=== PATIENT | male | born 1955 | race Caucasian/White ===

== ENCOUNTER → 2018-02-05 | Outpatient (CLI) | payer MEDICARE, OTHER ==
--- NOTE | 2018-02-06 10:43 | US ---
EXAMINATION TYPE: US carotid duplex BILAT DATE OF EXAM: 02/05/2018 COMPARISON: NONE CLINICAL HISTORY: I65.29 carotid stenosis; prior smoker, coronary artery stent EXAM MEASUREMENTS: RIGHT: Peak Systolic Velocity (PSV) cm/sec ----- Right CCA: 66.8 ----- Right ICA: 46.7 ----- Right ECA: 100.4 ICA/CCA ratio: 0.7 RIGHT: End Diastole cm/sec ----- Right CCA: 15.4 ----- Right ICA: 15.4 ----- Right ECA: 26.7 LEFT: Peak Systolic Velocity (PSV) cm/sec ----- Left CCA: 57.2 ----- Left ICA: 73.8 ----- Left ECA: 104.3 ICA/CCA ratio: 1.3 LEFT: End Diastole cm/sec ----- Left CCA: 14.5 ----- Left ICA: 21.5 ----- Left ECA: 21.5 VERTEBRALS (direction of flow): Right Vertebral: Antegrade Left Vertebral: Antegrade Rhythm: Normal Mild intimal wall changes are noted bilaterally, but PSV is wnl. IMPRESSION: Mild wall thickening without significant flow-limiting stenosis. Criteria for Assigning % of Stenosis / Diameter reduction (Estimation based on the indirect measurements of the internal carotid artery velocities (ICA PSV). 1. Normal (no stenosis)=ICA PSV < 125 cm/s: ratio < 2.0: ICA EDV<40 cm/s. 2. Less than 50% stenosis=ICA PSV < 125 cm/s: ratio < 2.0: ICA EDV<40 cm/s. 3. 50 to 69% stenosis=ICA PSV of 125 to 230 cm/s: ration 2.0 ? 4.0: ICA EDV 40-100 cm/s. 4. Greater than 70% stenosis to near occlusion= ICA PSV > 230 cm/s: ratio > 4.0: ICA EDV > 100 cm/s. 5. Near occlusion= ICA PSV velocities may be low or undetectable: variable ratio and ICA EDV. 6. Total occlusion=unable to detect flow.
== END | disposition home or self-care (01) ==
LOC: RADUSWWP 15:45
PROVIDERS: ATTEND Family Medicine
DX: R93.1 Abnormal findings on diagnostic imaging of heart and coronary circulation (principal)
CPT/HCPCS: 93880

== ENCOUNTER 2020-12-17 07:08 | Day surgery (SDC) | payer MEDICARE ==
[2020-12-14 15:10] VITALS: BMI 34.9
[~2020-12-17 07:08] MED LIST: LACTATED RINGERS 1,000 ML IV SCH; LIDOCAINE 1% (10MG/ML) FOR IV START INTRADERMA PRN
[2020-12-17 07:24] VITALS: TEMP 98.8
[2020-12-17] MEDS ORDERED: MIDAZOLAM 2 MG/2 ML VIAL ONE (08:23)
[2020-12-17] MEDS ORDERED: fentaNYL (PF) 50 MCG/ML 2 ML AMP ONE (08:23)
[2020-12-17] MEDS ORDERED: PROPOFOL 10 MG/ML 20 ML VIAL IV ONE (08:23)
--- NOTE | 2020-12-17 08:27 | P.GSHP ---
History of Present Illness H&P Date: 12/17/20 Chief Complaint: Screening colonoscopy This 65-year-old male who presents today for screening colonoscopy. Denies a significant GI bleed. Past Medical History Past Medical History: Diabetes Mellitus, GERD/Reflux, Hyperlipidemia, Hyper tension, Myocardial Infarction ([place]) Additional Past Medical History / Comment(s): ?sleep apnea-has never had sleep study Last Myocardial Infarction Date:: 01/07/14 History of Any Multi-Drug Resistant Organisms: None Reported Past Surgical History: Heart Catheterization With Stent, Orthopedic Surgery Additional Past Surgical History / Comment(s): Bilat knee arthroscopies Past Anesthesia/Blood Transfusion Reactions: No Reported Reaction Date of Last Stent Placement:: 01/07/14 Smoking Status: Former smoker - Past Family History Brother(s) Family Medical History: Cancer Additional Family Medical History / Comment(s): colon cancer Medications and Allergies Home Medications Medication Instructions Recorded Confirmed Type Aspirin 81 mg PO DAILY 07/13/15 12/14/20 History Atorvastatin [Lipitor] 80 mg PO DAILY 07/13/15 12/14/20 History Clopidogrel [Plavix] 75 mg PO DAILY 07/13/15 12/14/20 History Folic Acid 0.4 mg PO DAILY 07/13/15 12/14/20 History Metoprolol Tartrate [Lopressor] 25 mg PO BID 07/13/15 12/14/20 History Nitroglycerin Sl Tabs [Nitrostat] 0.4 mg SL DIRECTED PRN 07/13/15 12/14/20 History Venlafaxine HCl [Effexor] 75 mg PO DAILY 07/13/15 12/14/20 History lisinopriL [Zestril] 10 mg PO BID 07/13/15 12/14/20 History Levothyroxine Sodium [Synthroid] 25 mcg PO DAILY 12/14/20 12/14/20 History Loratadine [Claritin] 10 mg PO DAILY 12/14/20 12/14/20 History Omeprazole 40 mg PO DAILY PRN 12/14/20 12/14/20 History metFORMIN HCL [Glucophage] 500 mg PO BID 12/14/20 12/14/20 History Allergies Allergy/AdvReac Type Severity Reaction Status Date / Time No Known Allergies Allergy Verified 12/14/20 15:00 Surgical - Exam Vital Signs Temp Pulse Resp BP Pulse Ox 98.8 F 69 16 146/77 97 12/17/20 07:22 12/17/20 07:22 12/17/20 07:22 12/17/20 07:22 12/17/20 07:22 - General well developed, well nourished, no distress - Eyes PERRL - ENT normal pinna - Neck no masses - Respiratory normal expansion - Cardiovascular Rhythm: regular - Abdomen Abdomen: soft, non tender Assessment and Plan Assessment: We'll perform screening colonoscopy.
--- NOTE | 2020-12-17 08:39 | P.OP ---
Date of Procedure: 12/17/20 Preoperative Diagnosis: Screening colonoscopy Postoperative Diagnosis: Normal colon Procedure(s) Performed: Colonoscopy Anesthesia: MAC Surgeon: Celestino Alvarenga Pathology: none sent Condition: stable Disposition: PACU Description of Procedure: PROCEDURE: The patient was placed on the endoscopy table in the lateral position. Digital rectal examination was performed which revealed no abnormalities. The prostate was symmetrical without nodules. Flexible colonoscope was then placed in the patient's anus and passed throughout the entire colon. The ileocecal valve was visualized. The cecum, ascending, transverse, descending and sigmoid colon were normal. The rectum was normal as well. There were no masses, polyps or diverticula noted in the entire colon. SUMMARY OF FINDINGS: Normal colonoscopy.
[2020-12-17 08:47] LABS: Glucose,Whole Blood 92 mg/dL (75-99)
[2020-12-17 09:00] VITALS: BP 118/72; PULSE 62; RESP 14
== END 2020-12-17 09:16 | disposition home or self-care (01) ==
LOC: ORWHC2ENDO 07:08
PROVIDERS: ATTEND Surgery
DX: Z12.11 Encounter for screening for malignant neoplasm of colon (principal); Z80.0 Family history of malignant neoplasm of digestive organs; I10 Essential (primary) hypertension; E78.5 Hyperlipidemia, unspecified; E11.9 Type 2 diabetes mellitus without complications; I25.2 Old myocardial infarction; K21.9 Gastro-esophageal reflux disease without esophagitis; Z95.5 Presence of coronary angioplasty implant and graft; Z87.891 Personal history of nicotine dependence; Z98.890 Other specified postprocedural states; Z79.02 Long term (current) use of antithrombotics/antiplatelets; Z79.82 Long term (current) use of aspirin; Z79.890 Hormone replacement therapy; Z79.84 Long term (current) use of oral hypoglycemic drugs; Z79.899 Other long term (current) drug therapy; Z82.49 Family history of ischemic heart disease and other diseases of the circulatory system; Z82.61 Family history of arthritis
CPT/HCPCS: G0105; J2250; J3010; J2704

== ENCOUNTER 2022-07-04 20:09 | Inpatient (IN) | payer MEDICARE ==
[~2022-07-04 20:09] MED LIST changes: +EPINEPHrine 10 ML SYRINGE (0.1 MG/ML) ONE; -LACTATED RINGERS 1,000 ML IV SCH; -LIDOCAINE 1% (10MG/ML) FOR IV START INTRADERMA PRN; +MAGNESIUM SULFATE SYG 4.06 MEQ/ML SYRINGE ONE; +NOREPINEPHRINE 1 MG/ML 4 ML VIAL IV ONE; +SODIUM BICARB 8.4% 50 ML SYR (1 MEQ/ML) ONE; +SODIUM CHLORIDE 0.9% 250 ML BAG ONE
[2022-07-04 20:18] LABS: Glucose,Whole Blood 83 mg/dL (70-110)
[2022-07-04] MEDS ORDERED: NOREPINEPHRINE 4 MG in SODIUM CHLORIDE 0.9% 250 ML IV ONE (20:45)
[2022-07-04 21:07] LABS: HGB 12.1 gm/dL (13.0-17.5); Hypochromasia Marked; MCH 33.3 pg (25.0-35.0); MCHC 28.1 g/dL (31.0-37.0); MCV 118.3 fL (80.0-100.0); Macrocytosis Marked; Mean Platelet Volume 13.1; RBC 3.63 m/uL (4.30-5.90); RDW 14.7 % (11.5-15.5); WBC 4.1 k/uL (3.8-10.6)
[2022-07-04 21:08] LABS: Platelet Count 76 k/uL (150-450)
[2022-07-04] MEDS ORDERED: SODIUM CHLORIDE 0.9% 1,000 ML IV STA (21:12)
[2022-07-04] MEDS ORDERED: SODIUM CHLORIDE 0.9% 1,000 ML IV ONE (21:13)
[2022-07-04] MEDS ORDERED: cefTRIAXone IN SWFI 1,000 MG/10 ML SYRINGE IVP STA (21:13)
[2022-07-04 21:27] LABS: Band Neutrophils % 2 %; Lymphocytes # (M) 2.95 k/uL (1.0-4.8); Monocytes # (M) 0.08 k/uL (0-1.0); Neutrophils % (M) 24 %; Nucleated Red Blood Cells 0 /100 WBC (0-0); Total Cells Counted 100
[2022-07-04 21:28] LABS: Polychromasia Present
[2022-07-04] MEDS ORDERED: PANTOPRAZOLE 40 MG/10 ML VIAL IVP STA (21:43)
[2022-07-04 21:50] LABS: Albumin 3.2 g/dL (3.5-5.0); Calcium 9.2 mg/dL (8.4-10.2); Total Bilirubin 0.4 mg/dL (0.2-1.3); Total Protein 6.1 g/dL (6.3-8.2)
[2022-07-04 21:51] LABS: Potassium 4.8 mmol/L (3.5-5.1)
--- NOTE | 2022-07-04 21:53 | ED ---
General Adult HPI - General Chief complaint: Cardiac Arrest/CPR Stated complaint: Cardiac Arrest Source: EMS, RN notes reviewed, old records reviewed Mode of arrival: EMS Limitations: altered mental status, physical limitation - History of Present Illness Initial comments: 66-year-old male with known coronary artery disease presents status post cardiac arrest. Patient had been found in his garage by his . He collapsed and had agonal respirations. CPR was initiated. This was shortly after 7 PM. Paramedics had initially asystole followed by a brief return of spontaneous circulation followed by asystole. He received resuscitation according to ACLS protocol. He was receiving respirations by a Yakov airway. Had a left tibial IO. There was no preceding symptoms according to the family. Resuscitative efforts were continued upon arrival. - Related Data Home Medications Medication Instructions Recorded Confirmed Aspirin 81 mg PO DAILY 07/13/15 12/14/20 Atorvastatin [Lipitor] 80 mg PO DAILY 07/13/15 12/14/20 Clopidogrel [Plavix] 75 mg PO DAILY 07/13/15 12/14/20 Folic Acid 0.4 mg PO DAILY 07/13/15 12/14/20 Metoprolol Tartrate [Lopressor] 25 mg PO BID 07/13/15 12/14/20 Nitroglycerin Sl Tabs [Nitrostat] 0.4 mg SL DIRECTED PRN 07/13/15 12/14/20 Venlafaxine HCl [Effexor] 75 mg PO DAILY 07/13/15 12/14/20 lisinopriL [Zestril] 10 mg PO BID 07/13/15 12/14/20 Levothyroxine Sodium [Synthroid] 25 mcg PO DAILY 12/14/20 12/14/20 Loratadine [Claritin] 10 mg PO DAILY 12/14/20 12/14/20 Omeprazole 40 mg PO DAILY PRN 12/14/20 12/14/20 metFORMIN HCL [Glucophage] 500 mg PO BID 12/14/20 12/14/20 Allergies Allergy/AdvReac Type Severity Reaction Status Date / Time No Known Allergies Allergy Verified 12/14/20 15:00 Review of Systems ROS Statement: Those systems with pertinent positive or pertinent negative responses have been documented in the HPI. ROS Other: All systems not noted in ROS Statement are negative. Past Medical History Past Medical History: Diabetes Mellitus, GERD/Reflux, Hyperlipidemia, Hypertension, Myocardial Infarction ([place]) Additional Past Medical History / Comment(s): ?sleep apnea-has never had sleep study Last Myocardial Infarction Date:: 01/07/14 History of Any Multi-Drug Resistant Organisms: None Reported Past Surgical History: Heart Catheterization With Stent, Orthopedic Surgery Additional Past Surgical History / Comment(s): Bilat knee arthroscopies Past Anesthesia/Blood Transfusion Reactions: No Reported Reaction Date of Last Stent Placement:: 01/07/14 Past Psychological History: Depression Smoking Status: Former smoker - Past Family History Brother(s) Family Medical History: Cancer Additional Family Medical History / Comment(s): colon cancer General Exam General appearance: other (No spontaneous movement, no signs of life initially) Head exam: Present: other (Abrasion to the right methodist) Eye exam: Present: other (Pupils fixed and dilated) Respiratory exam: Present: other (Breath sounds with BVM) Cardiovascular Exam: Present: other (No spontaneous heart sounds) GI/Abdominal exam: Present: distended Extremities exam: Present: other (Left tibial IO) Neurological exam: Present: other (No gag, no corneal, no pupillary reflex) Skin exam: Present: cyanosis Course Vital Signs 07/04/22 07/04/22 07/04/22 20:13 21:14 21:23 Pulse Rate 0 L Respiratory 0 L Rate Blood Pressure O2 Sat by Pulse 71 L Oximetry Fraction of 100 100 Inspired Oxygen (FIO2) 07/04/22 07/04/22 23:07 23:11 Pulse Rate 112 H Respiratory 24 Rate Blood Pressure 66/49 O2 Sat by Pulse Oximetry Fraction of 100 Inspired Oxygen (FIO2) - Reevaluation(s) Reevaluation #1: 07/05/22 00:05 Ultimately patient's does decide on DO NOT RESUSCITATE and the patient will be managed medically without CPR or further measures. Reevaluation #2: 07/05/22 00:08 Time of 0008 EKG Findings - EKG Comments: EKG Findings:: Post cardiac arrest EKG, sinus rhythm with right bundle branch block rate of 82 UT interval 104, QRS duration 158, QTC 447 Procedures - Central Line Placement Right Femoral Consent Obtained: emergent situation Patient Placed on Monitor/Pulse Ox: Yes Prep: gloves Central Line Prep: Chlorhexidine scrub Ultrasound Used for Placement: No Central Line Lumen Inserted: triple Bloods Obtained for Lab: Yes Central Line Position: good blood return, sutured in place with nylon Dressing Applied: Tegaderm Patient Tolerated Procedure: well - Intubation Laryngoscope: Heather Size: 3 ET Tube Size: 7.5 ET Tube Uncuffed: No Tube Secured Depth (cm): 24 Tube Secured Location: lips Tube Placement Confirmation: visualized tube passing through cords, equal breath sounds bilaterally, no breath sounds over epigastrium, confirmation by capnometry Patient Tolerated Procedure: well Intubation Complications: none Medical Decision Making - Medical Decision Making 66-year-old male presenting in cardiac arrest, out of Hospital cardiac arrest with prolonged down time. Resuscitative efforts were continued in the emergency department. The patient was intubated with a 7.5 ET tube. He had a left tibial IO. Resuscitative efforts were performed in the emergency department. He had multiple episodes of return of spontaneous circulation with intermittent episodes PEA. He had a brief episode of ventricular fibrillation which was successfully defibrillated. Remained stable in our for laboratory studies to be obtained. Significantly acidotic likely from prolonged down time. He has an elevated troponin. He has transaminitis and elevated INR. He is not on any anticoagulation according to the medical record. Patient has chest x-ray which is showing satisfactory ET tube placement. I did perform a CT both for cardiac arrest and in the setting of a fall. There is loss of uribe-white differentiation without intracranial hemorrhage or mass effect. Patient continued on bicarb drip as well as norepinephrine. I discussed case with the admitting physician Dr. Arreola, the radio communications mechanician Dr. Avila cardiology Dr. Love. The patient's prognosis is poor. At this time the family does wish for the patient to remain a full code. - Lab Data Result diagrams: 07/04/22 20:43 07/04/22 20:43 Lab Results 07/04/22 07/04/22 07/04/22 Range/Units 20:17 20:43 20:43 WBC 4.1 (3.8-10.6) k/uL RBC 3.63 L (4.30-5.90) m/uL Hgb 12.1 L (13.0-17.5) gm/dL Hct 43.0 (39.0-53.0) % MCV 118.3 H (80.0-100.0) fL MCH 33.3 (25.0-35.0) pg MCHC 28.1 L (31.0-37.0) g/dL RDW 14.7 (11.5-15.5) % Plt Count 76 L (150-450) k/uL MPV 13.1 Neutrophils % (Manual) 24 % Band Neuts % (Manual) 2 % Lymphocytes % (Manual) 72 % Monocytes % (Manual) 2 % Neutrophils # (Manual) 1.00 L (1.3-7.7) k/uL Lymphocytes # (Manual) 2.95 (1.0-4.8) k/uL Monocytes # (Manual) 0.08 (0-1.0) k/uL Nucleated RBCs 0 (0-0) /100 WBC Manual Slide Review Performed Polychromasia Present Hypochromasia Marked Macrocytosis Marked A PT (9.0-12.0) sec INR (<1.2) APTT (22.0-30.0) sec Sample Site ABG pH (7.35-7.45) ABG pCO2 (35-45) mmHg ABG pO2 (83-108) mmHg ABG HCO3 (21-25) mmol/L ABG Total CO2 (19-24) mmol/L ABG O2 Saturation (94-97) % ABG Base Excess mmol/L Yon Test FiO2 % Sodium 138 (137-145) mmol/L Potassium 4.8 (3.5-5.1) mmol/L Chloride 99 (98-107) mmol/L Carbon Dioxide 12 L (22-30) mmol/L Anion Gap 27 mmol/L BUN 8 L (9-20) mg/dL Creatinine 1.32 H (0.66-1.25) mg/dL Est GFR (CKD-EPI)AfAm 65 (>60 ml/min/1.73 sqM) Est GFR (CKD-EPI)NonAf 57 (>60 ml/min/1.73 sqM) Glucose 341 H (74-99) mg/dL POC Glucose (mg/dL) 83 (70-110) mg/dL POC Glu Security Control [employer] Operator ID Alva Benton Calcium 9.2 (8.4-10.2) mg/dL Total Bilirubin 0.4 (0.2-1.3) mg/dL AST 466 H (17-59) U/L ALT 245 H (4-49) U/L Alkaline Phosphatase 96 (38-126) U/L Troponin I (0.000-0.034) ng/mL Total Protein 6.1 L (6.3-8.2) g/dL Albumin 3.2 L (3.5-5.0) g/dL Serum Alcohol mg/dL 07/04/22 07/04/22 07/04/22 Range/Units 21:12 21:12 21:55 WBC (3.8-10.6) k/uL RBC (4.30-5.90) m/uL Hgb (13.0-17.5) gm/dL Hct (39.0-53.0) % MCV (80.0-100.0) fL MCH (25.0-35.0) pg MCHC (31.0-37.0) g/dL RDW (11.5-15.5) % Plt Count (150-450) k/uL MPV Neutrophils % (Manual) % Band Neuts % (Manual) % Lymphocytes % (Manual) % Monocytes % (Manual) % Neutrophils # (Manual) (1.3-7.7) k/uL Lymphocytes # (Manual) (1.0-4.8) k/uL Monocytes # (Manual) (0-1.0) k/uL Nucleated RBCs (0-0) /100 WBC Manual Slide Review Polychromasia Hypochromasia Macrocytosis PT 27.1 H (9.0-12.0) sec INR 2.7 H (<1.2) APTT 143.5 H* (22.0-30.0) sec Sample Site ABG pH (7.35-7.45) ABG pCO2 (35-45) mmHg ABG pO2 (83-108) mmHg ABG HCO3 (21-25) mmol/L ABG Total CO2 (19-24) mmol/L ABG O2 Saturation (94-97) % ABG Base Excess mmol/L Yon Test FiO2 % Sodium (137-145) mmol/L Potassium (3.5-5.1) mmol/L Chloride (98-107) mmol/L Carbon Dioxide (22-30) mmol/L Anion Gap mmol/L BUN (9-20) mg/dL Creatinine (0.66-1.25) mg/dL Est GFR (CKD-EPI)AfAm (>60 ml/min/1.73 sqM) Est GFR (CKD-EPI)NonAf (>60 ml/min/1.73 sqM) Glucose (74-99) mg/dL POC Glucose (mg/dL) (70-110) mg/dL POC Glu Security Control Center Operator ID Calcium (8.4-10.2) mg/dL Total Bilirubin (0.2-1.3) mg/dL AST (17-59) U/L ALT (4-49) U/L Alkaline Phosphatase (38-126) U/L Troponin I 0.709 H* (0.000-0.034) ng/mL Total Protein (6.3-8.2) g/dL Albumin (3.5-5.0) g/dL Serum Alcohol <10 mg/dL 07/04/22 Range/Units 22:14 WBC (3.8-10.6) k/uL RBC (4.30-5.90) m/uL Hgb (13.0-17.5) gm/dL Hct (39.0-53.0) % MCV (80.0-100.0) fL MCH (25.0-35.0) pg MCHC (31.0-37.0) g/dL RDW (11.5-15.5) % Plt Count (150-450) k/uL MPV Neutrophils % (Manual) % Band Neuts % (Manual) % Lymphocytes % (Manual) % Monocytes % (Manual) % Neutrophils # (Manual) (1.3-7.7) k/uL Lymphocytes # (Manual) (1.0-4.8) k/uL Monocytes # (Manual) (0-1.0) k/uL Nucleated RBCs (0-0) /100 WBC Manual Slide Review Polychromasia Hypochromasia Macrocytosis PT (9.0-12.0) sec INR (<1.2) APTT (22.0-30.0) sec Sample Site LBRACH ABG pH 6.90 L* (7.35-7.45) ABG pCO2 71 H* (35-45) mmHg ABG pO2 121 H (83-108) mmHg ABG HCO3 14 L (21-25) mmol/L ABG Total CO2 16 L (19-24) mmol/L ABG O2 Saturation 94.8 (94-97) % ABG Base Excess -18.8 mmol/L Yon Test Yes FiO2 100 % Sodium (137-145) mmol/L Potassium (3.5-5.1) mmol/L Chloride (98-107) mmol/L Carbon Dioxide (22-30) mmol/L Anion Gap mmol/L BUN (9-20) mg/dL Creatinine (0.66-1.25) mg/dL Est GFR (CKD-EPI)AfAm (>60 ml/min/1.73 sqM) Est GFR (CKD-EPI)NonAf (>60 ml/min/1.73 sqM) Glucose (74-99) mg/dL POC Glucose (mg/dL) (70-110) mg/dL POC Glu Security Control Center Operator ID Calcium (8.4-10.2) mg/dL Total Bilirubin (0.2-1.3) mg/dL AST (17-59) U/L ALT (4-49) U/L Alkaline Phosphatase (38-126) U/L Troponin I (0.000-0.034) ng/mL Total Protein (6.3-8.2) g/dL Albumin (3.5-5.0) g/dL Serum Alcohol mg/dL Critical Care Time Critical Care Time: Yes Total Critical Care Time: 100 Disposition Clinical Impression: Cardiac arrest, Signs of return of spontaneous circulation Disposition: Condition: Poor Is patient prescribed a controlled substance at d/c from ED?: No Time of Disposition: 22:20 Decision to Admit Reason: Admit from EC Preliminary Cause of : Cardiopulmonary arrest
--- NOTE | 2022-07-04 21:58 | XR ---
EXAMINATION TYPE: XR chest 1V portable DATE OF EXAM: 07/04/2022 9:50 PM COMPARISON: Chest radiographs from 01/10/2014. TECHNIQUE: XR chest 1V portable Frontal view of the chest. CLINICAL INDICATION:Male, 66 years old with history of cardiac arrest; FINDINGS: Patient is rotated which limits evaluation. Lungs/Pleura: There is no evidence of pleural effusion, focal consolidation, or pneumothorax. Pulmonary vascularity: Unremarkable. Heart/mediastinum: Cardiomediastinal silhouette is enlarged. Musculoskeletal: No acute osseous pathology. Other findings: None Lines/Tubes: Endotracheal tube with distal tip 4.4 cm above the bre Nasogastric tube with its distal tip and side-port projecting under the diaphragm in the left upper q uadrant. IMPRESSION: Appropriate position of endotracheal and nasogastric tubes. Cardiomegaly.
[2022-07-04 22:04] LABS: INR 2.7 (<1.2); Prothrombin Time 27.1 sec (9.0-12.0)
[2022-07-04 22:18] LABS: Partial Thromboplastin Time 143.5 sec (22.0-30.0)
[2022-07-04 22:20] LABS: ABG Base Excess -18.8 mmol/L; ABG HCO3 14 mmol/L (21-25); ABG Oxygen Saturation 94.8 % (94-97); ABG PO2 121 mmHg (83-108); ABG TCO2 16 mmol/L (19-24); Allen Test Performed? Yes
--- NOTE | 2022-07-04 22:20 | CT ---
EXAMINATION TYPE: CT brain cspine wo con CT DLP: 1692.4 mGycm, Automated exposure control for dose reduction was used. DATE OF EXAM: 07/04/2022 10:04 PM COMPARISON: None.. CLINICAL INDICATION:Male, 66 years old with history of fall, cardiac arrest; fall, cardiac arrest TECHNIQUE: Brain: Multiple axial CT images of the brain were obtained without IV contrast. Cspine: Axial CT images from the skull base to the inferior aspect of T2 we obtained without intraven ous contrast. Coronal and sagittal reformatted images were also reviewed. FINDINGS: Brain: Extra-axial spaces: No abnormal extra-axial fluid collections. Ventricular system: Within normal limits Cerebral parenchyma: There is poor differentiation of the uribe and white matter this examination. Cerebellum: Unremarkable. Mass effect: No evidence of midline shift. Intracranial vasculature: Atherosclerotic calcifications of the intracranial vessels. Soft tissues: Right frontal soft tissue tissue edema. Calvarium/osseous structures: No depressed skull fracture. Paranasal sinuses and mastoid air cells: Mild scattered mucosal thickening and or secretions. Visualized orbits: Orbital contents are intact. Other: Partially visualized endotracheal and nasogastric tubes. Persistent cardiac arrest Cervical spine: Fracture: None. Osseous structures: Multilevel degenerative disc disease changes with endplate spurring and disc oste ophyte complex's. Vertebral alignment: Within normal limits. Spinal canal/Neural Foramina: No evidence of significant spinal canal narrowing. Facet joint uncovert ebral joint arthropathy scattered throughout the cervical spine with varying degrees of neural forami nal stenosis. Neck soft tissues: Prevertebral soft tissues are within normal limits. Other: The airway is patent. The lung apices are clear. IMPRESSION: 1. Diffuse hypoattenuation of the cerebral parenchyma with loss of the uribe-white matter differentia tion. There is diffuse effacement of the cortical sulci, basilar cisterns and ventricular system. Whi ch could be secondary to global hypoxic-ischemic injury. 2. No evidence of cervical spine fracture. 3. Mild multilevel degenerative disc disease. 4. Right frontal soft tissue tissue scalp edema.
[2022-07-04 22:23] LABS: ABG PCO2 71 mmHg (35-45)
[2022-07-04] MEDS ORDERED: DEXTROSE 5% IN WATER 1,000 ML with SODIUM BICARB (1 MEQ/ML) 150 ML IV SCH (22:30)
[2022-07-04] MEDS ORDERED: SODIUM BICARB 8.4% 50 ML SYR (1 MEQ/ML) IV STA (22:37)
[2022-07-04] MEDS ORDERED: HYDROmorphone 0.5 MG/0.5 ML SYRINGE IVP PRN (22:38)
[2022-07-04] MEDS ORDERED: NALOXONE 0.4 MG/ML 1 ML VIAL IV PRN (22:38)
[2022-07-04] MEDS ORDERED: ACETAMINOPHEN SUPPOSITORY 650 MG SUPP RECTAL PRN (22:38)
[2022-07-04] MEDS ORDERED: NOREPINEPHRINE 32 MG in SODIUM CHLORIDE 0.9% 218 ML IV SCH (22:45)
[2022-07-04 23:13] VITALS: RESP 24
--- NOTE | 2022-07-05 06:14 | P.HPIM ---
History of Present Illness H&P Date: 07/04/22 Chief Complaint: cardiac arrest 66-year-old male with diabetes mellitus, hypertension Patient was brought into the hospital by EMS as he was found in t and his home garage collapsed unresponsive EMS found him to be in asystole they did a prolonged code for about 30 minutes after which he achieved ROSC, and Route he had multiple episodes of asystole upon presentation to the ED patient was intubated and initiated on pressors however he had multiple short episodes of cardiac arrest, was successful return of spontaneous circulation after short cycle of CPR and patient medications. Imaging of the brain showed poor definition of white to uribe matter, patient blood pressure remained hypotensive with undetectable pulses despite IV pressors. Patient severely acidotic with both metabolic and respiratory acidosis. Further discussion with the family family agreed to make him DO NOT RESUSCITATE. patient was monitored in the emergency department for stabilization.Patient eventually Slowly went intobradycardia and . Past Medical History Past Medical History: Diabetes Mellitus, GERD/Reflux, Hyperlipidemia, Hyperten rhina, Myocardial Infarction ([place]) Additional Past Medical History / Comment(s): ?sleep apnea-has never had sleep study Last Myocardial Infarction Date:: 01/07/14 History of Any Multi-Drug Resistant Organisms: None Reported Past Surgical History: Heart Catheterization With Stent, Orthopedic Surgery Additional Past Surgical History / Comment(s): Bilat knee arthroscopies Past Anesthesia/Blood Transfusion Reactions: No Reported Reaction Date of Last Stent Placement:: 01/07/14 Past Psychological History: Depression Smoking Status: Former smoker - Past Family History Brother(s) Family Medical History: Cancer Additional Family Medical History / Comment(s): colon cancer Medications and Allergies Home Medications Medication Instructions Recorded Confirmed Type Aspirin 81 mg PO DAILY 07/13/15 12/14/20 History Atorvastatin [Lipitor] 80 mg PO DAILY 07/13/15 12/14/20 History Clopidogrel [Plavix] 75 mg PO DAILY 07/13/15 12/14/20 History Folic Acid 0.4 mg PO DAILY 07/13/15 12/14/20 History Metoprolol Tartrate [Lopressor] 25 mg PO BID 07/13/15 12/14/20 History Nitroglycerin Sl Tabs [Nitrostat] 0.4 mg SL DIRECTED PRN 07/13/15 12/14/20 History Venlafaxine HCl [Effexor] 75 mg PO DAILY 07/13/15 12/14/20 History lisinopriL [Zestril] 10 mg PO BID 07/13/15 12/14/20 History Levothyroxine Sodium [Synthroid] 25 mcg PO DAILY 12/14/20 12/14/20 History Loratadine [Claritin] 10 mg PO DAILY 12/14/20 12/14/20 History Omeprazole 40 mg PO DAILY PRN 12/14/20 12/14/20 History metFORMIN HCL [Glucophage] 500 mg PO BID 12/14/20 12/14/20 History Allergies Allergy/AdvReac Type Severity Reaction Status Date / Time No Known Allergies Allergy Verified 12/14/20 15:00 Physical Exam Vitals: Vital Signs Pulse Pulse Resp BP BP Pulse Ox FiO2 07/04/22 23:11 112 H 24 66/49 07/04/22 23:07 100 07/04/22 21:55 76 54/32 94 L 07/04/22 21:40 78 78/54 96 07/04/22 21:25 84 64/32 07/04/22 21:23 100 07/04/22 21:14 100 07/04/22 21:10 80 78/54 95 07/04/22 20:55 0 L 54/31 94 L 07/04/22 20:40 84 70/48 07/04/22 20:25 0 L 42/28 07/04/22 20:13 0 L 0 L 71 L 07/04/22 20:10 0 L 50/42 Intake and Output 07/04/22 07/04/22 07/05/22 14:59 22:59 06:59 Other: Weight 127.006 kg Results CBC & Chem 7: 07/04/22 20:43 07/04/22 20:43 Labs: Abnormal Lab Results - Last 24 Hours (Table) 07/04/22 07/04/22 07/04/22 Range/Units 20:43 20:43 21:12 RBC 3.63 L (4.30-5.90) m/uL Hgb 12.1 L (13.0-17.5) gm/dL MCV 118.3 H (80.0-100.0) fL MCHC 28.1 L (31.0-37.0) g/dL Plt Count 76 L (150-450) k/uL Neutrophils # (Manual) 1.00 L (1.3-7.7) k/uL Macrocytosis Marked A PT 27.1 H (9.0-12.0) sec INR 2.7 H (<1.2) APTT 143.5 H* (22.0-30.0) sec ABG pH (7.35-7.45) ABG pCO2 (35-45) mmHg ABG pO2 (83-108) mmHg ABG HCO3 (21-25) mmol/L ABG Total CO2 (19-24) mmol/L Carbon Dioxide 12 L (22-30) mmol/L BUN 8 L (9-20) mg/dL Creatinine 1.32 H (0.66-1.25) mg/dL Glucose 341 H (74-99) mg/dL AST 466 H (17-59) U/L ALT 245 H (4-49) U/L Troponin I (0.000-0.034) ng/mL Total Protein 6.1 L (6.3-8.2) g/dL Albumin 3.2 L (3.5-5.0) g/dL 07/04/22 07/04/22 Range/Units 21:12 22:14 RBC (4.30-5.90) m/uL Hgb (13.0-17.5) gm/dL MCV (80.0-100.0) fL MCHC (31.0-37.0) g/dL Plt Count (150-450) k/uL Neutrophils # (Manual) (1.3-7.7) k/uL Macrocytosis PT (9.0-12.0) sec INR (<1.2) APTT (22.0-30.0) sec ABG pH 6.90 L* (7.35-7.45) ABG pCO2 71 H* (35-45) mmHg ABG pO2 121 H (83-108) mmHg ABG HCO3 14 L (21-25) mmol/L ABG Total CO2 16 L (19-24) mmol/L Carbon Dioxide (22-30) mmol/L BUN (9-20) mg/dL Creatinine (0.66-1.25) mg/dL Glucose (74-99) mg/dL AST (17-59) U/L ALT (4-49) U/L Troponin I 0.709 H* (0.000-0.034) ng/mL Total Protein (6.3-8.2) g/dL Albumin (3.5-5.0) g/dL
[2022-07-05 06:29] VITALS: BP 44/31; PULSE 66
[2022-07-05] MEDS ORDERED: PANTOPRAZOLE 40 MG/10 ML VIAL IV SCH (09:00)
--- NOTE | 2022-07-06 20:35 | P.DS ---
Providers Date of admission: 07/04/22 22:38 Attending physician: Leena Quintero MD Consults: 07/04/22 22:38 Consult Physician Stat Consulting Provider: Pete Avila Consult Reason/Comments: cardiac arrest with ROSC Do you want consulting provider notified?: Already Contacted Consult Physician Urgent Consulting Provider: Maryam Love Consult Reason/Comments: Cardiac arrest with ROSC Do you want consulting provider notified?: Already Contacted Primary care physician: Stated None Hospital Course: patient 66-year-old male with diabetes mellitus, hypertension Patient was brought into the hospital by EMS as he was found in t and his home garage collapsed unresponsive EMS found him to be in asystole they did a prolonged code for about 30 minutes after which he achieved ROSC, and Route he had multiple episodes of asystole upon presentation to the ED patient was intubated and initiated on pressors however he had multiple short episodes of cardiac arrest, was successful return of spontaneous circulation after short cycle of CPR and patient medications. Imaging of the brain showed poor definition of white to uribe matter, patient blood pressure remained hypotensive with undetectable pulses despite IV pressors. Patient severely acidotic with both metabolic and respiratory acidosis. Further discussion with the family family agreed to make him DO NOT RESUSCITATE. patient was monitored in the emergency department for stabilization.Patient eventually Slowly went into bradycardia and . Patient Condition at Discharge: Undetermined Plan - Discharge Summary New Discharge Prescriptions: No Action Atorvastatin [Lipitor] 80 mg PO DAILY Folic Acid 0.4 mg PO DAILY Venlafaxine HCl [Effexor] 75 mg PO DAILY Clopidogrel [Plavix] 75 mg PO DAILY Metoprolol Tartrate [Lopressor] 25 mg PO BID lisinopriL [Zestril] 10 mg PO BID Aspirin 81 mg PO DAILY Nitroglycerin Sl Tabs [Nitrostat] 0.4 mg SL DIRECTED PRN PRN Reason: Chest Pain metFORMIN HCL [Glucophage] 500 mg PO BID Omeprazole 40 mg PO DAILY PRN PRN Reason: acid reflux Loratadine [Claritin] 10 mg PO DAILY Levothyroxine Sodium [Synthroid] 25 mcg PO DAILY Discharge Medication List Aspirin 81 mg PO DAILY 07/13/15 [History] Atorvastatin [Lipitor] 80 mg PO DAILY 07/13/15 [History] Clopidogrel [Plavix] 75 mg PO DAILY 07/13/15 [History] Folic Acid 0.4 mg PO DAILY 07/13/15 [History] Metoprolol Tartrate [Lopressor] 25 mg PO BID 07/13/15 [History] Nitroglycerin Sl Tabs [Nitrostat] 0.4 mg SL DIRECTED PRN 07/13/15 [History] Venlafaxine HCl [Effexor] 75 mg PO DAILY 07/13/15 [History] lisinopriL [Zestril] 10 mg PO BID 07/13/15 [History] Levothyroxine Sodium [Synthroid] 25 mcg PO DAILY 12/14/20 [History] Loratadine [Claritin] 10 mg PO DAILY 12/14/20 [History] Omeprazole 40 mg PO DAILY PRN 12/14/20 [History] metFORMIN HCL [Glucophage] 500 mg PO BID 12/14/20 [History] Follow up Appointment(s)/Referral(s): None,Stated [Primary Care Provider] - 1-2 days Discharge Disposition: - Preliminary Cause of Preliminary Cause of : cardiac arrest
--- NOTE | 2022-07-07 14:40 | CDI ---
Documentation Clarification Form Date: 07/07/2022 01:39:44 PM From: Natalie Mendosa RN, CCDS Email: [email or web address] Admit Date: 07/04/2022 10:38:00 PM Patient Name: Osvaldo Burns Visit Number: [id number] Discharge Date: 07/05/2022 02:44:00 AM ATTENTION: The Clinical Documentation Specialists (CDI) and [facility] Coding Staff appreciate your assistance in clarifying documentation. Please respond to the clarification below the line at the bottom and electronically sign. The CDI & [facility] Coding staff will review the response and follow-up if needed. Please note: Queries are made part of the Legal Health Record. If you have any questions, please contact the author of this message via ITS. Dr. Leena Quintero Your patient had both metabolic and respiratory acidosis and eventually . Based on this information and the findings below, is there an additional diagnosis that is clinically appropriate for this patient? History/Risk Factors: CAD, previous [place], GERD, DM, HTN, hyperlipidemia. Collapsed at home and had agonal respirations. Admitted with cardiac arrest. Tobacco use: former smoker Clinical Indicators: collapsed, went into cardiac arrest 07/04 ED: "out of Hospital cardiac arrest with prolonged down time. The patient was intubated with a 7.5 ET tube. Multiple episodes of return of spontaneous circulation with intermittent episodes PEA. He had a brief episode of ventricular fibrillation which was successfully defibrillated. Remained stable in our for laboratory studies to be obtained. Significantly acidotic likely from prolonged down time. Patient had chest x-ray which showed satisfactory ET tube placement." 07/04 H&P: "Patient severely acidotic with both metabolic and respiratory acidosis." 07/04 Vital signs: HR 112, BP 66/49, RR 24 07/04 Pulse oximetry: 71% on arrival to ED 07/04 ABG: pH: 6.90 pO2: 121 pCO2: 71 HCO3: 14 Treatment: [place] airway in the field. ACLS protocol in the field. Intubation/ventilation on arrival. Sodium bicarbonate drip. IVF bolus Is there an additional diagnosis/diagnoses that is clinically appropriate for this patient? [ ] Acute Hypoxic Respiratory Failure (pO2 <60 mm Hg or SpO2 <91% on room air) [ ] Acute Hypercapnic Respiratory Failure (pCO2 >50 and pH <7.35) [ ] Other Diagnosis, please specify [ ] Unable to determine Acute Hypoxic Respiratory Failure (pO2 <60 mm Hg or SpO2 <91% on room air) MICHELLE
--- NOTE | 2022-07-07 14:58 | CDI ---
Documentation Clarification Form Date: 07/07/2022 02:42:52 PM From: Natalie Mendosa RN, CCDS Email: [email or web address] Admit Date: 07/04/2022 10:38:00 PM Patient Name: Osvaldo Burns Visit Number: [id number] Discharge Date: 07/05/2022 02:44:00 AM ATTENTION: The Clinical Documentation Specialists (CDI) and [facility] Coding Staff appreciate your assistance in clarifying documentation. Please respond to the clarification below the line at the bottom and electronically sign. The CDI & [facility] Coding staff will review the response and follow-up if needed. Please note: Queries are made part of the Legal Health Record. If you have any questions, please contact the author of this message via ITS. Dr. Leena Quintero Your patient was admitted with cardiac arrest. Based on this information and the findings below, is there an additional diagnosis that is clinically appropriate for this patient? History/Risk Factors: CAD, previous [place], GERD, DM, HTN, hyperlipidemia. Collapsed at home and had agonal respirations. Admitted with cardiac arrest. Tobacco use: former smoker Clinical Indicators: collapsed, went into cardiac arrest 07/06 Discharge summary: "Patient was brought into the hospital by EMS as he was found in his home garage collapsed unresponsive. EMS found him to be in asystole they did a prolonged code for about 30 minutes after which he achieved ROSC. Enroute he had multiple episodes of asystole. Upon presentation, patient was intubated and initiated on pressors however he had multiple short episodes of cardiac arrest. Patient severely acidotic with both metabolic and respiratory acidosis. Further discussion with the family agreed to make him DNR. Patient was monitored in the emergency department for stabilization. Patient eventually went into bradycardia and ." 07/04 Vital signs: HR 112, BP 66/49, RR 24 07/04 Pulse oximetry: 71% on arrival to ED 07/04 ABG: pH: 6.90 pO2: 121 pCO2: 71 HCO3: 14 Treatment: [place] airway in the field. ACLS protocol in the field. Intubation/ventilation on arrival. Sodium bicarbonate drip. IVF bolus. Levophed 0.5mcg/kg/min Is there an additional diagnosis/diagnoses that is clinically appropriate for this patient? [ ] Cardiogenic shock [ ] Other, please specify [ ] Unable to determine MTDD
--- NOTE | 2022-07-19 10:24 | CDI ---
Documentation Clarification Form Date: 07/07/2022 02:42:00 PM From: Natalie Mendosa RN, CCDS Email: [email or web address] Admit Date: 07/04/2022 10:38:00 PM Patient Name: Osvaldo Burns Visit Number: [id number] Discharge Date: 07/05/2022 02:44:00 AM ATTENTION: The Clinical Documentation Specialists (CDI) and [facility] Coding Staff appreciate your assistance in clarifying documentation. Please respond to the clarification below the line at the bottom and electronically sign. The CDI & [facility] Coding staff will review the response and follow-up if needed. Please note: Queries are made part of the Legal Health Record. If you have any questions, please contact the author of this message via ITS. Dr. Leena Quintero Your patient was admitted with cardiac arrest and eventually . Based on this information and the findings below, is there an additional diagnosis that is clinically appropriate for this patient? Please respond on the query form before signing. History/Risk Factors: CAD, previous [place], GERD, DM, HTN, hyperlipidemia. Collapsed at home and had agonal respirations. Admitted with cardiac arrest. Tobacco use: former smoker Clinical Indicators: collapsed, went into cardiac arrest 07/06 Discharge summary: "Patient was brought into the hospital by EMS as he was found in his home garage collapsed unresponsive. EMS found him to be in asystole they did a prolonged code for about 30 minutes after which he achieved ROSC. Enroute he had multiple episodes of asystole. Upon presentation to the ED patient was intubated and initiated on pressors however he had multiple short episodes of cardiac arrest, had successful return of spontaneous circulation after short cycle of CPR and patient medications. Patient severely acidotic with both metabolic and respiratory acidosis. Further discussion with the family, agreed to make him DNR. Patient was monitored in the emergency department for stabilization. Patient eventually went into bradycardia and ." 07/04 Vital signs: HR 112, BP 66/49, RR 24 07/04 Pulse oximetry: 71% on arrival to ED 07/04 ABG: pH: 6.90 pO2: 121 pCO2: 71 HCO3: 14 Treatment: Levophed 0.5mcg/kg/min, [place] airway in the field. ACLS protocol in the field. Intubation/ventilation on arrival. Sodium bicarbonate drip. IVF bolus. Is there an additional diagnosis that is clinically appropriate for this patient? [ ] Cardiogenic shock [ ] Other, please specify [ ] Unable to determine this patient in the ED, however, because admit orders were placed by ED doctors, I had to place a quick summary of what happened. I actually was not able to fully evaluate the patient as I mentioned earlier, he in the ED. MICHELLE
--- NOTE | 2022-07-27 13:59 | CDI ---
Documentation Clarification Form Date: 07/27/2022 01:29:54 PM From: Natalie Mendosa RN, CCDS Email: [email or web address] Admit Date: 07/04/2022 10:38:00 PM Patient Name: Osvaldo Burns Visit Number: [id number] Discharge Date: 07/05/2022 02:44:00 AM ATTENTION: The Clinical Documentation Specialists (CDI) and [facility] Coding Staff appreciate your assistance in clarifying documentation. Please respond to the clarification below the line at the bottom and electronically sign. The CDI & [facility] Coding staff will review the response and follow-up if needed. Please note: Queries are made part of the Legal Health Record. If you have any questions, please contact the author of this message via ITS. Dr. Roni Cannon This patient was admitted with cardiac arrest and . Based on this information and the findings below, is there an additional diagnosis that is clinically appropriate for this patient? History/Risk Factors: CAD, previous [place], GERD, DM, HTN, hyperlipidemia. Collapsed at home and had agonal respirations. Admitted with cardiac arrest. Tobacco use: former smoker Clinical Indicators: 07/04 ED note: Cardiac arrest. Signs of return of spontaneous circulation. 07/06 Discharge summary: "Patient was brought into the hospital by EMS as he was found in his home garage collapsed unresponsive. EMS found him to be in asystole. They did a prolonged code for about 30 minutes after which he achieved ROSC. Enroute he had multiple episodes of asystole. Upon presentation to the ED patient was intubated and initiated on pressors however he had multiple short episodes of cardiac arrest, had successful return of spontaneous circulation after short cycle of CPR and patient medications. Patient severely acidotic with both metabolic and respiratory acidosis. Further discussion with the family, agreed to make him DNR. Patient was monitored in the emergency department for stabilization. Patient eventually went into bradycardia and ." 07/04 Vital signs: HR 112, BP 66/49, RR 24 07/04 Pulse oximetry: 71% on arrival to ED 07/04 ABG: pH: 6.90 pO2: 121 pCO2: 71 HCO3: 14 Treatment: Levophed 0.5mcg/kg/min, [place] airway in the field. ACLS protocol in the field. Intubation/ventilation on arrival. Sodium bicarbonate drip. IVF bolus. Is there an additional diagnosis that is clinically appropriate for this patient? [ ] Cardiogenic shock [ ] Other, please specify [ ] Unable to determine MTDD
== END 2022-07-05 02:44 | disposition expired | DRG 296 ==
LOC: EC 20:09 → 2SICU 22:38
PROVIDERS: ADMIT Internal Medicine; ATTEND Internal Medicine
PROC: 5A1935Z Respiratory Ventilation, Less than 24 Consecutive Hours (ICD-10-PCS; principal; 2022-07-04)
PROC: 0BH18EZ Insertion of Endotracheal Airway into Trachea, Via Natural or Artificial Opening Endoscopic (ICD-10-PCS; principal; 2022-07-04)
PROC: 5A12012 Performance of Cardiac Output, Single, Manual (ICD-10-PCS; principal; 2022-07-04)
PROC: 02HV33Z Insertion of Infusion Device into Superior Vena Cava, Percutaneous Approach (ICD-10-PCS; principal; 2022-07-04)
PROC: 3E043XZ Introduction of Vasopressor into Central Vein, Percutaneous Approach (ICD-10-PCS; principal; 2022-07-04)
DX: I46.9 Cardiac arrest, cause unspecified (principal); J96.01 Acute respiratory failure with hypoxia; E87.4 Mixed disorder of acid-base balance; E11.9 Type 2 diabetes mellitus without complications; E78.5 Hyperlipidemia, unspecified; F32.A Depression, unspecified; I10 Essential (primary) hypertension; I25.10 Atherosclerotic heart disease of native coronary artery without angina pectoris; I95.9 Hypotension, unspecified; I25.2 Old myocardial infarction; I49.01 Ventricular fibrillation; R79.1 Abnormal coagulation profile; Z66 Do not resuscitate; R74.01 Elevation of levels of liver transaminase levels; Z79.02 Long term (current) use of antithrombotics/antiplatelets; Z79.82 Long term (current) use of aspirin; Z79.84 Long term (current) use of oral hypoglycemic drugs; Z79.890 Hormone replacement therapy; Z79.899 Other long term (current) drug therapy; Z87.891 Personal history of nicotine dependence
CPT/HCPCS: 31500; 36415; 36556; 36600; 70450; 71045; 72125; 80053; 80320; 82805; 84484; 85025; 85610; 85730; 87070; 87205; 92950; 93005; 96375; 99291; 99292